=== PATIENT | male | born 1980 | race African-American/Black ===

== ENCOUNTER 2016-09-27 | Inpatient (IN) | payer OTHER ==
--- NOTE | ~2016-09-27 | HP ---
Unit #: [id number] #: [id number] Patient: KRISTEN BELTRAN [id number] [facility] [address] [place] [address] [id number] I MR#: [id number] NAME: KRISTEN BELTRAN ROOM: P204 Age: 36 Sex: M Admission Date: 09/27/2016 : 1980 Attending Physician: Des Frank M.D. Admitting Physician: Des Frank M.D. Primary Care Physician: Guanakito Coates M.D. HISTORY AND PHYSICAL HISTORY OF PRESENT ILLNESS Kristen is a 36 year old admitted to [address] [place] [address] because of his drug use. He smokes spice. PAST MEDICAL HISTORY 1. 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 2. History of withdrawal seizures. PAST SURGICAL HISTORY Inguinal hernia repair. ALLERGIES No known drug allergies. SOCIAL HISTORY Smokes blacks. Denies alcohol. Admits to a history of illicit substance abuse to include spice. FAMILY HISTORY Medically noncontributory. REVIEW OF SYSTEMS CONSTITUTIONAL: No fever or chills. HEENT: Denies any sore throat, ear pain or runny nose. CARDIOVASCULAR: Denies chest pain, irregular heart rhythm or palpitations. CHEST: Denies shortness of breath or cough. No hemoptysis. GASTROINTESTINAL: Denies nausea, vomiting, diarrhea or chronic constipation. ENDOCRINE: Denies history of increased thirst or urination. No recent significant weight loss or gain. GENITOURINARY: Denies dysuria, frequency, or hematuria. SKIN: Denies any rashes. HEMATOLOGIC: Denies history of increased bleeding or bruising. MUSCULOSKELETAL: Denies any hot, swollen joints. No generalized muscle pain. NEUROLOGIC: Denies problems with vision or speech. No frequent, severe headaches. No numbness, tingling or weakness in any extremities. Denies loss of bladder or bowel control. CURRENT MEDICATIONS 1. Detox protocol. 2. Celexa 20 mg daily. Unit #: [id number] #: [id number] Patient: KRISTEN BELTRAN PHYSICAL EXAMINATION GENERAL: Alert, well-nourished, in no apparent distress. VITAL SIGNS: Blood pressure 132/74, heart rate 56, respirations 16, temperature 98.6. WEIGHT: 196. HEIGHT: 5 feet 10 inches. SKIN: Warm and dry without rash or lesion. HEENT: Normocephalic. TMs not viewed. Oral and nasal passages clear. Conjunctivae clear. PERRLA. EOMs intact. NECK: Supple without lymphadenopathy or thyromegaly. HEART: Regular rate and rhythm without murmur. LUNGS: Clear. ABDOMEN: Soft, nontender. : Not done. EXTREMITIES: No evidence of cyanosis, clubbing or edema. Moves all without focal deficit. NEUROLOGICAL: Grossly within normal limits. Cranial Nerves: II: Visual murillo are intact. III, IV AND : Extraocular movements are intact. Pupils are equal, round and reactive to light. V: Facial sensation is grossly normal. VII: Facial movements and expression are normal. VIII: Auditory acuity grossly intact. IX, X: Uvula is midline. Phonation is normal. XI: Patient shrugs shoulders and turns head normally. XII: Tongue protrudes in the midline. Sensory and Motor Function: Sensory and motor sensation is grossly normal. Motor: moves all extremities well. Coordination: Gait is normal. Deep Tendon Reflexes: Intact. IMPRESSION Psychiatric admission. RECOMMENDATIONS PSYCHIATRIC: Per psychiatrist. MEDICAL: See no contraindications to participate in facility's activities. MEDICAL PROGNOSIS Good. MEDICAL CONDITION Stable. Dictated by... Anny Parada PJose FAJose F-[place]. for Weston Toth/lan TD: 09/27/2016 18:00 JOB #: [id number] Unit #: [id number] #: [id number] Patient: KRISTEN BELTRAN HISTORY AND PHYSICAL Page 1 of 1 X Anny Parada X HISTORY AND PHYSICAL
--- NOTE | ~2016-09-27 | PN ---
Unit #: [id number] #: [id number] Patient: KRISTEN BELTRAN [id number] [facility] [address] [place] [address] [id number] I MR#: [id number] NAME: KRISTEN BELTRAN ROOM: P204 Age: 36 Sex: M Admission Date: 09/27/2016 : 1980 Attending Physician: Des Frank M.D. Admitting Physician: Des Frank M.D. Primary Care Physician: Weston Infante PROGRESS NOTES DATE OF SERVICE 09/28/2016 DISCUSSION Kristen continues to have detox symptoms today from his use of "spice" and I suspect that he was using other substances that he is not admitting to. He is staying in his bed, but is sleeping better. He participates rarely in groups and activities. He is alert and fully oriented with no evidence of psychosis. ASSESSMENT Stimuli dependence. PLAN Continue current treatment plan. Dictated by... Des Frank M.D. [facility]/nicola TD: 10/01/2016 10:02 JOB #: [id number] NERISSA PROGRESS NOTES Page 1 of 1 X Des Frank MD PROGRESS NOTE
--- NOTE | ~2016-09-27 | PN ---
Unit #: [id number] #: [id number] Patient: KRISTEN BELTRAN [id number] [facility] [address] [place] [address] [id number] I MR#: [id number] NAME: KRISTEN BELTRAN ROOM: P204 Age: 36 Sex: M Admission Date: 09/27/2016 : 1980 Attending Physician: Des Frank M.D. Admitting Physician: Des Frank M.D. Primary Care Physician: Weston Infante PROGRESS NOTES DATE OF SERVICE 09/29/2016 DISCUSSION Kristen complains of nausea and vomiting this morning but states his other detox symptoms are improving. His mood is a little irritable with a congruent affect. He is alert and fully oriented with no evidence of psychosis and no suicidal ideation. ASSESSMENT Stimulant abuse. PLAN Continue with detox protocol, anticipating discharge tomorrow. Dictated by... Des Frank M.D. [facility]/nicola TD: 10/01/2016 10:41 JOB #: [id number] [facility] PROGRESS NOTES Page 1 of 1 X Des Frank MD PROGRESS NOTE
--- NOTE | ~2016-09-27 | DS ---
Unit #: [id number] #: [id number] Patient: KRISTEN BELTRAN [id number] [facility] [address] [place] [address] [id number] I MR#: [id number] NAME: KRISTEN BELTRAN ROOM: P204 Age: 36 Sex: M Admission Date: 09/27/2016 : 1980 Discharge Date: 09/30/2016 Attending Physician: Des Frank M.D. Primary Care Physician: Guanakito Coates M.D. DISCHARGE SUMMARY REASON FOR ADMISSION Kristen is a 36-year-old man who came in reporting the use of "spice" and having an emotional crash. He had suicidal ideation with no significant plan and was admitted for detox. DIAGNOSTIC STUDIES LABORATORY RESULTS: Please see hospital chart. HOSPITAL COURSE The patient was admitted and placed on suicide precautions. The opioid detox protocol was initiated due to some ongoing symptomatology, although, he had initially denied opioid abuse. He attended occasional groups and activities on the unit, although staff reported to me some suspicions that the patient had been working on arranging "deals" with other patients, although, these were not confirmed in detail. 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 He accepted the prescription for Celexa 20 mg daily for his reported depressive symptoms which appeared to quickly resolved after admission. On the date of discharge, he had no further suicidal ideation, intent, or plan. DISCHARGE DIAGNOSES AXIS I: Stimulant dependence with withdrawal; depressive disorder, not otherwise specified. AXIS II: Antisocial traits. AXIS III: None. AXIS IV: AXIS V: DISCHARGE INSTRUCTIONS Follow up with CD-IOP at this facility and primary care physician. DISCHARGE MEDICATIONS Celexa 20 mg daily for depression. CONDITION AT DISCHARGE Fair. PROGNOSIS Fair to good. DIET AND ACTIVITY Unit #: [id number] #: [id number] Patient: KRISTEN BELTRAN Ad mj. Dictated by... Des Frank M.D. [facility]l TD: 09/30/2016 19:22 JOB #: [id number] DISCHARGE SUMMARY Page 1 of 1 X Des Frank MD DISCHARGE SUMMARY
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
[2016-09-27 10:00] LABS: BASOPHIL# 0.1 X10e3 (0-0.3); EOSINOPHIL# 0.1 X10e3 (0-0.7); EOSINOPHIL% 2.2 % (0.0-7.0); HEMATOCRIT 43.7 % (38.0-50.0); HEMOGLOBIN 14.4 gm/dL (13.0-16.0); LYMPHOCYTE# 2.4 X10e3 (1.0-3.5); LYMPHOCYTE% 43.3 % (17.0-45.0); MEAN CELL VOLUME 93.4 FL (83-96); MEAN CORPUSCULAR HEMOGLOBIN 30.8 PG (28-34); MEAN PLATELET VOLUME 10.7 FL (6.5-11.5); MONOCYTE# 0.5 X10e3 (0-1.0); MONOCYTE% 9.5 % (3.0-12.0); NEUTROPHIL# 2.5 X10e3 (1.5-7.1); RED BLOOD COUNT 4.68 X10e (3.90-5.60); RED CELL DISTRIBUTION WIDTH 13.9 % (11.0-15.5); WHITE BLOOD COUNT 5.6 X10e3 (4.0-10.5)
[2016-09-27 10:30] LABS: DIFF IND NO; PLATELET COUNT 129 X10e3 (140-420)
[2016-09-27 11:20] LABS: ALBUMIN SERUM 3.9 g/dL (3.5-5.0); BILIRUBIN,TOTAL 0.4 mg/dL (0.2-2.0); BUN/CREATININE RATIO 9.09; CALCIUM SERUM 9.3 mg/dL (8.4-10.2); CREATININE SERUM 1.1 mg/dL (0.6-1.4); GLOM FILT RATE Estimated 98.9 mL/min (>60); POTASSIUM 3.8 mmol/L (3.5-5.1)
[2016-09-28 10:37] LABS: AMPHETAMINE NEG (NEG); BARBITURATES NEG (NEG); BENZODIAZEPINES NEG (NEG); COCAINE NEG (NEG); MARIJUANA POS (NEG); OPIATES NEG (NEG); TRICYCLIC ANTIDEPRESSANTS NEG (NEG); U METHADONE NEG (NEG)
== END 2016-09-30 15:30 | DRG 897 ==
LOC: P2S 04:16
PROVIDERS: Psychiatry & Neurology Psychiatry
PROC: HZ2ZZZZ Detoxification Services for Substance Abuse Treatment (ICD-10-PCS; principal; 2016-09-27)
DX: F15.24 Other stimulant dependence with stimulant-induced mood disorder (principal); F11.10 Opioid abuse, uncomplicated; F32.9 Major depressive disorder, single episode, unspecified; F60.2 Antisocial personality disorder
CPT/HCPCS: 80053; 80307; 85025; 86592; J2550